=== PATIENT | male | born 1965 | race Caucasian/White ===

== ENCOUNTER → 2018-11-09 15:14 | Outpatient (CLI) | payer BC, SELFPAY ==
--- NOTE | 2018-11-09 16:00 | MRI_ITS ---
STUDY: MRI LUMBAR SPINE WITHOUT CONTRAST REASON FOR EXAM: Male, 52 years old. Low back pain, right foot numbness TECHNIQUE: Standardized fat and water weighted pulse sequences were obtained in the sagittal and axial planes. COMPARISON: None FINDINGS: T12-L1: Normal endplates. Normal disc height, hydration and morphology. Mild facet spondylosis. Normal central canal and bilateral lateral recesses. Normal bilateral intervertebral neural foramina. Normal lumbar lordosis. There is no substantial scoliosis. Normal conus medullaris L1-2: There is posterior bulging annulus. There is mild increased T2 signal within the posterior disc margin. Mild effacement on the thecal sac with mild central canal narrowing. No foraminal stenosis L2-3: There is mild posterior bulging annulus. There is ligamentous hypertrophy. There is mild facet spondylosis. Mild central canal narrowing. There is no left foraminal stenosis there is mild right foraminal stenosis L3-4: The moderate facet degenerative changes and ligamentous hypertrophy. There is no disc protrusion. Borderline central canal, no neural foraminal stenosis L4-5: There is disc space narrowing. There is a small central posterior disc protrusion with minimal inferior extrusion. There is [id number] central canal narrowing. There is moderate facet degenerative changes and ligamentous hypertrophy. There is mild left foraminal stenosis. There is no right foraminal stenosis. L5-S1: There is a small central posterior disc protrusion. There is [id number] facet spondylosis mild ligamentous hypertrophy. Mild central canal narrowing. No left foraminal stenosis and borderline right foraminal narrowing Normal visualized sacral ala. Normal visualized paraspinous soft tissue structures. MRI/Spine Lumbar (Routine) IMPRESSION: Multilevel spondylosis as above Small central posterior disc protrusion at L5-S1 multifactorial mild central canal stenosis and borderline right foraminal stenosis At L4-L5 there is a small central posterior disc protrusion with minimal inferior extrusion. There is pods-sw-xinvdtic central canal narrowing there is mild left foraminal stenosis Posterior bulging annulus at L1-L2, small posterior annular tear, mild central canal stenosis Multifactorial mild right foraminal stenosis L2-L3 Electronically Signed: Urbano Henriquez, at 16:39 EDT Tel , Service support ,
== END ==
PROVIDERS: Referring Provider Anesthesiology Pain Medicine; Visit Provider Anesthesiology Pain Medicine
DX: M54.16 Radiculopathy, lumbar region (principal)
CPT/HCPCS: 72148